=== PATIENT | female | born 1970 | race Hispanic/Latino ===

== ENCOUNTER 2021-01-07 15:01 | Emergency (ER) | payer SELFPAY ==
[~2021-01-07] VITALS: Ht 157.5 cm; Wt 77.1 kg
[2021-01-07] MEDS ORDERED: ONDANSETRON 4MG INJ ONE (15:51)
[2021-01-07] MEDS ORDERED: ONDANSETRON 4MG INJ IVP ONE (16:00)
[2021-01-07] MEDS ORDERED: 0.9%NACL 1000ML 1,000 ML IV ONE (16:00)
[2021-01-07 16:08] LABS: BASOPHILS % (AUTO) 0.2 % (0.0-5.0); EOSINOPHILS % (AUTO) 0.1 % (0.0-8.0); HEMATOCRIT 38.3 % (36-48); LYMPHOCYTES % (AUTO) 9.2 % (21.0-51.0); MEAN CORPUSCULAR HEMOGLOBIN 28.3 pg (27.0-33.0); MEAN CORPUSCULAR HGB CONC 33.9 g/dL (32.0-36.0); MEAN CORPUSCULAR VOLUME 83.4 fL (79-99); MONOCYTES % (AUTO) 3.8 % (3.0-13.0); NEUTROPHILS % (AUTO) 86.1 % (40.0-77.0); PLATELET COUNT (AUTO) 338 K/uL (130-400); RED BLOOD CELL COUNT(AUTO) 4.59 MIL/uL (4.00-5.50); RED CELL DISTRIBUTION WIDTH 11.8 % (11.0-15.5); WHITE BLOOD COUNT (AUTO) 12.5 K/uL (4.8-10.8)
[2021-01-07 16:17] LABS: CREATININE 0.7 mg/dL (0.5-1.5); POTASSIUM 3.8 mmol/L (3.5-5.1)
[2021-01-07 16:26] LABS: BILIRUBIN,TOTAL 0.6 mg/dL (0.2-1.0); TOTAL PROTEIN, SERUM 8.2 g/dL (6.0-8.3)
[2021-01-07 16:30] LABS: APPEARANCE,URINE Clear (CLEAR); BILIRUBIN,URINE Negative (NEGATIVE); COLOR,URINE Yellow (YELLOW); GLUCOSE, URINE (UA) Negative (NEGATIVE); KETONES,URINE 40 mg/dL (NEGATIVE); LEUKOCYTE ESTERASE ,URINE Small (NEGATIVE); NITRATE,URINE Negative (NEGATIVE); OCCULT BLOOD,URINE Negative (NEGATIVE); PH,URINE 8.5 (5.0-8.0); PROTEIN,URINE Trace mg/dL (NEGATIVE); UROBILINOGEN,URINE 0.2 mg/dL (0.2-1.0)
[2021-01-07 16:35] LABS: HCG,QUAL RESULT NEGATIVE (NEGATIVE)
[2021-01-07 16:38] LABS: RBC,URINE 0-1 /HPF (0-1)
[2021-01-07 16:39] LABS: BACTERIA,URINE Few /HPF (None Seen); MUCUS,URINE Few LPF (None Seen); SQUAMOUS EPITHELIAL CELL,UR Few /HPF (0-2)
[2021-01-07 17:08] VITALS: BP 129/77
[2021-01-07] MEDS ORDERED: CEPH500B PO (17:14)
[2021-01-07] MEDS ORDERED: CEFTRIAXONE 1G VIAL ONE (17:18)
[2021-01-07] MEDS ORDERED: CEFTRIAXONE 1G VIAL IVP ONE (17:30)
== END 2021-01-07 17:28 | disposition home or self-care (01) ==
LOC: EDH 15:01
DX: N39.0 Urinary tract infection, site not specified (principal); R53.1 Weakness; Z20.822 Contact with and (suspected) exposure to COVID-19; Z79.899 Other long term (current) drug therapy
CPT/HCPCS: 36415; 71045; 80053; 81001; 81025; 83690; 84484; 85025; 87088; 87635; 93005; 96374; 99285; C9803; J0696; J2405